=== PATIENT | female | born 2000 | race Caucasian/White ===

== ENCOUNTER 2024-05-30 13:15 | Outpatient (CLI) | payer OTHER ==
[2024-05-30 13:35] VITALS: BP 149/74
[2024-05-30 14:53] VITALS: PULSE 93; RESP 16; TEMP 98.6
--- NOTE | 2024-06-14 11:23 | P.MSEPDOC ---
Presenting Problems - Arrival Data Date of Arrival on Unit: 05/30/24 Time of Arrival on Unit: 13:16 Mode of Transport: Ambulatory - Complaint OB-Reason for Admission/Chief Complaint: Observation/Evaluation Comment: Pt arrives to triage requesting a second opinion. Pt stated her broadcast technician suggested she be induced r/t increased BPs however the attending denied the IOL request and she was sent home. Pt states she had PIH labs drawn today but will not have results til tomorrow or Monday. Medical History - Information : 1 Para: 0 - Gestational Age Gestational Age by FARA (wks/days): 37 Weeks and 4 Days Review of Systems - Review of Systems Constitutional: No problems Breast: No problems ENT: No problems Cardiovascular: No problems Respiratory: No problems Gastrointestinal: No problems Genitourinary: No problems Musculoskeletal: No problems Neurological: No problems Skin: No problems Comment: bilateral leg edema, no new, had since 26wks Vital Signs - Temperature Temperature: 98.6 F Temperature Source: Temporal Artery Scan - Pulse Pulse Oximetery Pulse Rate: 93 Pulse Assessment Method: Automatic Cuff - Respirations Respiratory Rate: 16 Oxygen Delivery Method: Room Air O2 Sat by Pulse Oximetry: 100 - Blood Pressure Right Arm Sitting Blood Pressure: 149/74 Blood Pressure Mean: 99 Blood Pressure Source: Automatic Cuff Medical Screen Scoring - Assessment - Baby A Baseline FHR: 135 Heart Rate - NICHD Category: Category I (Normal) NST: Reactive Physician Notification - Physician Notified Physician Notified Date: 05/30/24 Physician Notified Time: 14:12 Physician: Dante Delgado New Order Received: Yes - Notification Comment Comment: Spk c\Dr. Delgado, [facility] pt of [facility], , 37 06/24, requesting a second opinion regarding a declined IOL for gestation hyptertension/PIH. Pt had labs drawn by broadcast technician today, will not have results until tomorr or Monday. Has appt c\Band Presser on monday. Pt has bilateral leg edema, which has been unchanged since 26wks. Reviewed pts blood pressures. Reactive NST, cat 1 fht. Order rec'd to discharge pt home, follow up c\broadcast technician. Maternal Triage Index - Prompt/Priority 3 Prompt Priority 3: Yes Criteria Met for Priority 3: BP; 149/74, 132/66, 123/60, 112/59, 113/59 Disposition - Disposition OB Disposition: Discharge to home, Written follow up instructions reviewed Discharge Date: 05/30/24 Discharge Time: 14:30 I agree with the RN Medical Screening Exam: Yes Physician's MSE Comment: I have neither seen nor examined the patient. Case reviewed; plan agreed upon as documented in EMR&OBIX.: Yes Diagnosis: RELATED CONDITIONS, UNSPECIFIED, THIRD TRIMESTER
== END 2024-05-30 14:30 | disposition home or self-care (01) ==
LOC: FBPOP 13:15
PROVIDERS: ATTEND Obstetrics & Gynecology
DX: O26.93 Pregnancy related conditions, unspecified, third trimester (principal); Z3A.37 37 weeks gestation of pregnancy
CPT/HCPCS: 59025; 99213